=== PATIENT | male | born 1960 | race Caucasian/White ===

== ENCOUNTER 2025-08-14 10:26 | Outpatient (REF) | payer OTHER, SELFPAY ==
[2025-08-14 14:29] LABS: Hematocrit 46.4 % (42.0-52.0); Hemoglobin 15.4 g/dl (14.0-18.0); Mean Corpuscular HGB Conc 33.2 g/dl (31.0-36.0); Mean Corpuscular Hemoglobin 29.4 pg (27.0-33.0); Mean Corpuscular Volume 88.7 fL (80.0-98.0); NRBC Abs Auto 0.000 X10*3/uL (0.0-0.012); NRBC Pct Auto 0.0 /100WBC (0.0-0.2); Platelet Count 273 X10*3/uL (160-400); Red Blood Count 5.23 X10*6/uL (4.60-5.80); White Blood Count 10.9 X10*3/uL (4.8-10.8)
[2025-08-14 14:58] LABS: Microalbum/Creatinine Ratio Ur 5.7 ug/mg cr (<30)
[2025-08-14 16:07] LABS: Folate 11.9 ng/mL (> or = 4.0); Vitamin B12 788 pg/mL (200-900)
[2025-08-14 16:34] LABS: Alanine Aminotransferase 20 U/L (0-40); Albumin Level 4.5 g/dL (3.5-5.0); Alkaline Phosphatase 48 U/L (39-117); Anion Gap 11 (12-20); Aspartate Amino Transferase 28 U/L (5-37); Blood Urea Nitrogen 14 mg/dL (9-16); Calcium 9.3 mg/dL (8.4-10.2); Carbon Dioxide 28 mmol/L (22-29); Chloride 105 mmol/L (96-108); Cholesterol 240 mg/dL (<200); Estimated Glomerular Filt Rate > 60; HDL Cholesterol 52 mg/dL (>40); Iron 92 mcg/dL (45-160); Percent Iron Saturation 34 % (15-50); Potassium 4.3 mmol/L (3.3-5.1); Sodium 140 mmol/L (135-145); Total Iron Binding Capacity 272 mcg/dL (228-428); Total Protein 6.7 g/dL (6.5-8.0); Triglycerides 130 mg/dL (<150); Unsaturated Iron Binding 180 ug/dL
== END 2025-08-14 10:27 | disposition home or self-care (01) ==
LOC: HO.WFDLDS 10:26
PROVIDERS: PCP Nurse Practitioner Family; Visit Provider Nurse Practitioner Family
DX: Z12.5 Encounter for screening for malignant neoplasm of prostate (principal); I10 Essential (primary) hypertension; E89.0 Postprocedural hypothyroidism; N40.0 Benign prostatic hyperplasia without lower urinary tract symptoms; M25.552 Pain in left hip; M25.562 Pain in left knee; M25.512 Pain in left shoulder; V89.2XXA Person injured in unspecified motor-vehicle accident, traffic, initial encounter; S13.4XXA Sprain of ligaments of cervical spine, initial encounter; S06.0X0A Concussion without loss of consciousness, initial encounter
CPT/HCPCS: 36415; 80053; 80061; 82043; 82306; 82570; 82607; 82746; 83036; 83540; 84153; 84443; 85027; 96127

== ENCOUNTER 2025-08-14 10:26 | Outpatient (AMB) | payer OTHER, SELFPAY ==
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
[2025-08-14 10:33] VITALS: BP 158/90; PULSE 76; RESP 14; TEMP 36.2; O2SAT 96; BMI 27.8
[2025-08-14 11:07] VITALS: BP 140/78
--- OUTSIDE RECORDS SUMMARY | 2025-08-14 11:36 | XMS_ITS ---
Author Name [facility] Organization Unknown Problems Problem Status Onset Date Problem Type Date of Resoluti on Source Hypertension, unspecified type active EncounterDiagnosisAct HH CCT Blood in stool active EncounterDiagnosisAct HHCCT Encounters Encounter Type Encounter Reason Primary Diagnosis Location Date Ambulatory Essential (primary) hypertension Essential (primary) hypertension [facility] 06/08/2023 Care Team Organization Name Specialty Phone Email Start Date End Da te [facility] 06/08/2023 06/08/2023 [facility] 06/08/2023
--- OUTSIDE RECORDS SUMMARY | 2025-08-14 11:36 | XMS_ITS | Data Portability ---
Author Organization [place] - [facility], Allergy Address [address] [place] [phone] Care Team Providers Care Charge Poster Name Role Phone SANNA RODRIGEZ Referring Provider [phone] Assessment Encounter Date Assessment Date Assessment LastModified by Organization Details LastModified Time 01/01/2025 01/01/2025 1. Laryngopharyngeal reflux 2. Globus sensation Plan: I had a long discussion with the patient regarding their complaints and examination findings. Often throat complaints are non-specific and can be caused by a number of different causes. These include reflux disease, asthma, allergies and post nasal drip. Treatment is often empiric and consists of trials of medication directed at the most likely cause. In this case I think that laryngopharyngeal reflux is likely and I would recommend a trial of proton pump inhibitor. -Lifestyle modifications discussed - Omeprazole 40mg daily - Follow-up in 3 months 3. 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 Not available 01/01/2025 13:48:20 03/22/2025 03/22/2025 1. Laryngopharyngeal reflux 2. Globus sensation Plan: I had a long discussion with the patient regarding their complaints and examination findings. Often throat complaints are non-specific and can be caused by a number of different causes. These include reflux disease, asthma, allergies and post nasal drip. Treatment is often empiric and consists of trials of medication directed at the most likely cause. -Lifestyle modifications discussed - Taper omeprazole - instructions given. - FOllow-up as needed Not available 03/23/2025 12:56:35 Plan of Treatment Reminders Order Date Submit Date Provider Last Modified By Organization Details Last Modified Time Details Appointments None recorded. Lab None recorded. Referral None recorded. Procedures None recorded. Surgeries None recorded. Imaging None recorded. Medication Orders omeprazole 40 mg capsule,del ayed release 2024 025 [id number], [address] [facility], [place], [address], 5 13:21:44 Patient TargetsNo targets recorded. Patient InstructionsNo instructions recorded. Reason for Referral None Reported. 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 refer to Dr Henson/Cornel manrique for tx 12/10/14. 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 - [facility] [place] 13:19:42 Squamous cell carcinoma of head and neck 724922509 Active 2024 STACEY ZAIDI MD [address] [facility],[place] [address], [facility] [place], [address] , [facility] - [facility] 13:48:29 Problem Notes None recorded. Procedures Surgical History Date Name Laterality Status Provider Name and Address Organization Details Recorded Time 01/01/20 Fiberoptic Laryngoscopy (Comprehensive) completed STACEY ZAIDI MD [address] [facility],[place] [address], [place], [address], [facility] - [facility] 01/01/2025 13:40:51 Imaging Results None recorded. Procedure Notes None recorded. Medical Equipment None Reported. Medications Name Sig Start Date Stop Date Status Note LastModified by Organization Details LastModified Time atorvasta tin 40 mg tablet TAKE 1 TABLET BY MOUTH EVERYDAY AT BEDTIME active Not Available Not Available No t Available cefpodoxi me 200 mg tablet TAKE 1 TABLET BY MOUTH EVERY 12 HOURS FOR 10 DAYS active Not Available Not Available No t Available senna 8.6 mg tablet TAKE 1 TABLET BY MOUTH TWICE A DAY FOR 14 DAYS NEEDED FOR CONSTIPA TION active Not Available Not Available No t Available meloxicam 15 mg tablet TAKE 1 TABLET BY MOUTH EVERY DAY AFTER A MEAL FOR 60 DAYS active Not Available Not Available No t Available clopidogr el 75 mg tablet TAKE 1 TABLET BY MOUTH EVERY DAY active Not Available Not Available No t Available omeprazol e 40 mg capsule,d elayed release TAKE 1 CAPSULE BY MOUTH EVERY DAY active Not Available Not Available No t Available aspirin 81 mg tablet,de layed release TAKE 1 TABLET BY MOUTH EVERY DAY active Not Available Not Available No t Available amoxicill in 500 mg tablet 1 TABLET BY MOUTH EVERY 8 HOURS, FOR 4 DAYS active Not Available Not Available No t Available levothyro xine 75 mcg tablet TAKE 1 TABLET BY MOUTH DAILY INCREASE D DOSE) active Not Available Not Available No t Available oxycodone -acetamin ophen 5 mg-325 mg tablet 01/01 completed Medicati on ID: [id number] Du ration Value: 2 Brand Name: oxycodon e-acetam inophen Send Method: E-Prescr ibed Sub s Allowed: subs OK Speci al Instruct ion: TAKE 1 TO 2 TABLETS BY MOUTH EVERY 4 TO 6 HOURS NEEDED FOR PAIN Med icationG enericNa me: oxycodon e-acetam inophen Not Available Not Available Not Available tamsulosi n 0.4 mg capsule TAKE 1 CAPSULE BY MOUTH EVERY DAY active Not Available Not Available No t Available amlodipin e 10 mg tablet TAKE 1 TABLET BY MOUTH EVERY DAY active Not Available Not Available No t Available pantopraz ole 40 mg tablet,de layed release TAKE 1 TABLET BY MOUTH 2 TIMES A DAY,X60 DAYS active Not Available Not Available No t Available lisinopri l 10 mg tablet TAKE 1 TABLET BY MOUTH EVERY DAY 01/01 completed Not Available Not Available Not Available hydrochlo rothiazid e 12.5 mg capsule TAKE 1 CAPSULE BY MOUTH EVERY DAY 01/01 completed Not Available Not Available Not Available docusate sodium 100 mg capsule TAKE 1 CAPSULE BY MOUTH TWICE A DAY 01/01 completed Not Available Not Available Not Available doxycycli ne hyclate 100 mg tablet TAKE 1 TABLET BY MOUTH TWICE A DAY FOR 10 DAYS 01/01 completed Not Available Not Available Not Available finasteri de 5 mg tablet TAKE 1 TABLET BY MOUTH EVERY DAY active Not Available Not Available No t Available bacitraci n-polymyx in B 500 unit-10,0 00 unit/gram eye ointment APPLY TO LEFT EYE EVERY 6 HRS 01/01 completed Not Available Not Available Not Available oxycodone 5 mg tablet TAKE 1 TABLET BY MOUTH EVERY 6 HOURS NEEDED FOR SEVERE PAIN X3 DAYS 01/01 completed Not Available Not Available Not Available lactulose 10 gram/15 mL oral solution TAKE 15 ML BY MOUTH TWICE DAILY DIRECTED X2 DAYS active Not Available Not Available No t Available Gavilax 17 gram/dose oral powder MIX AND TAKE 17G BY MOUTH DAILY FOR 14 DAYS active Not Available Not Available No t Available Vitals Date Recorded Body height Body mass index (BMI) Body weight Provider Name and Address Organization Details Last Updated DateTime 01/01/2025 170.18 cm 26.3 kg/m2 24625.52 g Barbara Mitchell [place] - [facility] 01/01/2025 12:53:29 Date Recorded Body height Body mass index (BMI) Body weight Provider Name and Address Organization Details Last Updated DateTime 03/22/2025 170.18 cm 26.3 kg/m2 90024.52 g Saray Saldaña [place] - [facility] 03/22/2025 15:32:36 Social History None recorded. Functional Status None recorded. Mental Status None recorded. Family History Nothing Reported. Medical History Condition Response Cancer Y Hypertension Y Past Encounters Encounter ID Performer Location Encounter Start Date Encounter Closed Date Diagnosis/Indication Diagnosis SNOMED-CT Code Diagnosis ICD10 Code Diagnosis IMO Codes Diagnosis Note [id number] STACEY ZAIDI MD [facility] [address] [phone] 01/01/2025 12:47:40 01/01/2025 13:27:48 Laryngopharyngeal reflux 216297187 K21.9 Squamous c ell carcinoma of head and neck 469466666 C44.42 [id number] STACEY ZAIDI MD [facility] [address] [address] 03/22/2025 15:23:19 03/26/2025 08:44:34 Laryngopharyngeal reflux 489750596 K21.9 Squamous c ell carcinoma of head and neck 510207121 C44.42 Health Concerns Section Related Observation LastModified by Organization Detai ls LastModified Time None Recorded Concern Status LastModified by Organization Details LastModified Time None Recorded Advance Directives Directive None Recorded Payers Insurance Date Sequence Insurance Name Policy Number Policy Muir Covered Member ID Muir Member ID Guarantor Name 03/22/2025 1 [employer] ([facility]) [id number] Keyur Rick [id number] Keyur Rick 12/01/[address] [place] [address] Jesus Rick [id number] Keyur Rick Notes Date Note Type Note Provider Name and Address Organization Details Recorded Time 01/01/2025 text/html ROS as noted in the HPI 64yo gentleman who presents today with laryngopharyngeal reflux.He reports heartburn, with specific foods and after meals.Coughing at nightHe drinks carbonated beverages. Ongoing x 2 months. He has not tried any consistent medication or lifestyle changes - does take a rolaid as needed. Recent history of carotid artery stenosis with carotid surgery ~ 2 months ago, which is when this all started. He has a history of left neck and throat cancer s/p chemo + radiation in 2014 (FiM5cL5). STACEY ZADII MD [address] [place] [address],[place] [address], [place], [phone], [place] - [facility] 01/01/2025 13:48:47 03/22/2025 text/html ROS as noted in the HPI 64yo gentleman who presents today with laryngopharyngeal reflux. He reports heartburn, with specific foods and after meals. Coughing at night He drinks carbonated beverages. Ongoing x 2 months. He has not tried any consistent medication or lifestyle changes - does take a rolaid as needed. Recent history of carotid artery stenosis with carotid surgery ~ 2 months ago, which is when this all started. He has a history of left neck and throat cancer s/p chemo + radiation in 2014 (PnC4nD2). Interval Update: Doing better from an LPR standpointHappy with his one omeprazole dailyWould like to taper STACEY ZAIDI MD [address] [place] [address],[place] [address], [place], [phone], [place] [facility] 03/23/2025 12:56:46
--- OUTSIDE RECORDS SUMMARY | 2025-08-14 11:36 | XMS_ITS | Clinical Summary ---
Author Organization [facility] Address [address] [place] [address] Care Team Providers Care Foreign Exchange Trader Name Role Phone Unknown Primary Care Provider [phone] Allergies No known active allergies Medications No known medications Social History Tobacco Use Types Packs/Day Years Used Date Smoking Tobacco: Never Assessed Sex and Gender Information Value Date Recorded Sex Assigned at Not on file Legal Sex Male 2:57 PM EDT Gender Identity Not on file Sexual Orientation Not on file Last Filed Vital Signs Vital Sign Reading Time Taken Comments Blood Pressure 200/100 06/08/2023 3:27 PM EDT Pulse 58 06/08/2023 3:05 PM EDT Temperature 36.6 C (97.8 F) 06/08/2023 3:05 PM EDT Respiratory Rate - - Oxygen Saturation 96% 06/08/2023 3:05 PM EDT Inhaled Oxygen Concentration - - Weight 79.4 kg (175 lb) 06/08/2023 3:05 PM EDT Height - - Body Mass Index - - Plan of Treatment Health Maintenance Due Date Last Done Comments Hepatitis C Virus Screening 1962 HIV Screening 1975 DTaP/Tdap/Td Vaccines (1 - Tdap) 1981 Colonoscopy 2007 Pneumococcal Vaccines 50+ (1 of 1 - PCV) 02/22/2012 Zoster (Shingles) Vaccine (1 of 2) 02/22/2012 Influenza Vaccine 06/15/2025 COVID-19 Vaccine ( - 2023-2 5 season) 2025 RSV Vaccine 60 years and old er and Patients (1 - 1-dose 75+ series) 2037 Hepatitis B Vaccines Aged Out No long er eligible based on patient's age to complete this topic Insurance [facility] Care Teams Foreign Exchange Trader Relationship Specialty Start Date End Date Unknown Unknow Provider Address PCP - General 06/08/23
== END 2025-08-14 11:33 | disposition home or self-care (01) ==
PROVIDERS: PCP Nurse Practitioner Family; Visit Provider Nurse Practitioner Family
DX: I10 Essential (primary) hypertension (principal); N40.0 Benign prostatic hyperplasia without lower urinary tract symptoms; E89.0 Postprocedural hypothyroidism; C44.42 Squamous cell carcinoma of skin of scalp and neck; I65.23 Occlusion and stenosis of bilateral carotid arteries; Z98.890 Other specified postprocedural states; Z95.828 Presence of other vascular implants and grafts; Z86.73 Personal history of transient ischemic attack (TIA), and cerebral infarction without residual deficits; Z87.19 Personal history of other diseases of the digestive system; Z28.21 Immunization not carried out because of patient refusal

== ENCOUNTER 2025-08-14 10:31 | Outpatient (AMB) | payer OTHER, SELFPAY ==
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
[2025-08-14 11:22] VITALS: BP 140/78; PULSE 74; RESP 13; TEMP 36.2; O2SAT 98; BMI 27.8
== END 2025-08-14 11:34 | disposition home or self-care (01) ==
PROVIDERS: PCP Nurse Practitioner Family; Visit Provider Nurse Practitioner Family
DX: M25.552 Pain in left hip (principal); M25.562 Pain in left knee; M25.512 Pain in left shoulder; V89.2XXA Person injured in unspecified motor-vehicle accident, traffic, initial encounter; S13.4XXA Sprain of ligaments of cervical spine, initial encounter; S06.0X0A Concussion without loss of consciousness, initial encounter